=== PATIENT | male | born 1985 | race Caucasian/White ===

== ENCOUNTER 2023-12-29 00:56 | Emergency (ER) | payer OTHER ==
[2023-12-29 01:13] VITALS: BP 134/82; PULSE 62; RESP 18; TEMP 97.6; BMI 27.3
== END 2023-12-29 03:29 | disposition home or self-care (01) ==
LOC: JER 00:56
DX: M79.89 Other specified soft tissue disorders (principal)
CPT/HCPCS: 99283-25